=== PATIENT | male | born 1980 | race Two or more races ===

== ENCOUNTER 2016-08-25 07:11 | Emergency (ER) | payer SELFPAY | END 2016-08-25 07:25 | disposition left against medical advice (07) | LOC: ER 07:14 | DX: Z53.21 Procedure and treatment not carried out due to patient leaving prior to being seen by health care provider (principal) | CPT/HCPCS: A4606; Z7610 ==

== ENCOUNTER 2016-10-22 15:15 | Emergency (ER) | payer SELFPAY ==
[~2016-10-22] VITALS: Ht 177.8 cm; Wt 75.7 kg
[2016-10-22] MEDS ORDERED: LORAZEPAM 1 MG TABLET ONE (15:35)
[2016-10-22] MEDS ORDERED: LORAZEPAM 1 MG TABLET PO ONE (16:00)
[2016-10-22 16:33] VITALS: BP 122/64
== END 2016-10-22 16:34 | disposition home or self-care (01) ==
LOC: ER 15:17
DX: F41.9 Anxiety disorder, unspecified (principal); R20.2 Paresthesia of skin
CPT/HCPCS: 99284; A4606; L0172; Z7610

== ENCOUNTER 2016-11-01 20:12 | Emergency (ER) | payer SELFPAY ==
[~2016-11-01] VITALS: Ht 180.3 cm; Wt 77.1 kg
[2016-11-01 20:17] VITALS: BP 143/78
[2016-11-01] MEDS ORDERED: LORAZEPAM 1 MG TABLET PO STA (20:41)
[2016-11-01] MEDS ORDERED: LORAZEPAM 1 MG TABLET ONE ×2 (20:41→20:43)
== END 2016-11-01 21:21 | disposition home or self-care (01) ==
LOC: ER 20:14
DX: F41.0 Panic disorder [episodic paroxysmal anxiety] (principal); H57.11 Ocular pain, right eye; R45.1 Restlessness and agitation
CPT/HCPCS: 99284; A4606; Z7610

== ENCOUNTER 2020-08-21 21:57 | Emergency (ER) | payer SELFPAY ==
[~2020-08-21] VITALS: Ht 180.3 cm; Wt 68.0 kg
--- NOTE | 2020-08-21 22:05 | NUR ---
BIBSELF C/O L LOWER EXT PAIN. PT AAOX4. AMBULATORY WITH STEADY GAIT. NO ACUTE DISTRESS NOTED AT THIS TIME. PENDING MD NEWTON
--- NOTE | 2020-08-21 22:20 | NUR ---
Ssuanne zafar in [facility] - 08/21/20 at 2231 by AILEEN BROUGHT BY RADIOLOGY TO XRAY
[2020-08-21] MEDS ORDERED: IBUPROFEN 600 MG TABLET ONE (22:25)
--- NOTE | 2020-08-21 22:26 | NUR ---
pt was taken for x ray
[2020-08-21] MEDS ORDERED: IBUPROFEN 600 MG TABLET PO ONE (22:30)
[2020-08-21 23:27] VITALS: BP 138/79
--- NOTE | 2020-08-21 23:27 | NUR ---
Patient discharged to home in stable condition. Written and verbal after care instructions given. Patient verbalizes understanding of instruction.Pt ambulatory with a steady gait. Pt refused splint, requesting for crutches only
== END 2020-08-21 23:27 | disposition home or self-care (01) ==
LOC: EDBD → ER 21:58
DX: S92.812A Other fracture of left foot, initial encounter for closed fracture (principal); M25.562 Pain in left knee; Z88.0 Allergy status to penicillin; Y08.89XA Assault by other specified means, initial encounter; Y93.89 Activity, other specified; Y92.89 Other specified places as the place of occurrence of the external cause; Y99.8 Other external cause status
CPT/HCPCS: 73552; 73564-TC; 73590-TC; 73630-TC; 93971-TC

== ENCOUNTER 2020-08-25 06:22 | Emergency (ER) | payer OTHER ==
[~2020-08-25] VITALS: Ht 180.3 cm; Wt 68.0 kg
[2020-08-25 06:25] VITALS: BP 156/89
--- NOTE | 2020-08-25 07:09 | NUR ---
Patient eloped from facility. ER MD notified.
== END 2020-08-25 07:12 | disposition left against medical advice (07) ==
LOC: ER 06:25
DX: Z53.21 Procedure and treatment not carried out due to patient leaving prior to being seen by health care provider (principal); R52 Pain, unspecified; F41.9 Anxiety disorder, unspecified

== ENCOUNTER 2020-08-25 22:01 | Emergency (ER) | payer OTHER ==
[~2020-08-25] VITALS: Ht 180.3 cm; Wt 68.0 kg
[2020-08-25 22:01] VITALS: BP 134/86
== END 2020-08-26 02:25 | disposition home or self-care (01) ==
LOC: ER 22:01
DX: M79.672 Pain in left foot (principal); F41.9 Anxiety disorder, unspecified; Z88.0 Allergy status to penicillin; W22.8XXA Striking against or struck by other objects, initial encounter; Y93.01 Activity, walking, marching and hiking; Y92.89 Other specified places as the place of occurrence of the external cause; Y99.8 Other external cause status
CPT/HCPCS: 73630-TC